=== PATIENT | male | born 1955 | race Caucasian/White ===

== ENCOUNTER 2018-07-03 08:43 | Emergency (ER) | payer BC ==
[2018-07-03] MEDS: METHOCARBAMOL 750 MG TAB PO (09:44)
[2018-07-03] MEDS: KETOROLAC 30 MG INJ IM (09:45)
== END 2018-07-03 10:26 | disposition home or self-care (01) ==
LOC: FTE 08:43
DX: M79.604 Pain in right leg (principal); I10 Essential (primary) hypertension; Z79.82 Long term (current) use of aspirin
CPT/HCPCS: 96372; 99284-25